=== PATIENT | female | born 1965 | race Caucasian/White ===

== ENCOUNTER 2018-04-24 06:00 | Outpatient (CLI) | payer OTHER ==
[~2018-04-24] VITALS: Ht 160 cm; Wt 68.0 kg
== END 2018-04-24 06:05 | disposition home or self-care (01) ==
LOC: LAB 06:00 → SURH 05-02 07:00 → EDSTATUS 05-02 07:30 → SURH 05-02 07:30
DX: N93.8 Other specified abnormal uterine and vaginal bleeding (principal); D25.9 Leiomyoma of uterus, unspecified

== ENCOUNTER 2019-05-09 11:00 | Inpatient (IN) | payer OTHER ==
[~2019-05-09] VITALS: Ht 160 cm; Wt 71.2 kg
[2019-05-16] MEDS ORDERED: CODE1TAB37 PO (07:39)
[2019-05-16] MEDS ORDERED: NAPROXEN500 MG PO (07:40)
[2019-05-16] MEDS ORDERED: TOBRAMYCIN-DEXAM5 ML OP (07:40)
== END 2019-05-16 12:49 | disposition home or self-care (01) | DRG 743 ==
LOC: OB/GYN 05-15 06:49 → O/R 05-15 06:49 → SURH 05-15 11:00 → OB/GYN 05-15 13:58
PROVIDERS: ADMIT Obstetrics & Gynecology
PROC: 0UQF4ZZ Repair Cul-de-sac, Percutaneous Endoscopic Approach (ICD-10-PCS; 2019-05-15)
PROC: 0USG4ZZ Reposition Vagina, Percutaneous Endoscopic Approach (ICD-10-PCS; 2019-05-15)
PROC: 0UT9FZZ Resection of Uterus, Via Natural or Artificial Opening With Percutaneous Endoscopic Assistance (ICD-10-PCS; principal; 2019-05-15 10:30)
DX: D25.1 Intramural leiomyoma of uterus (principal); N81.5 Vaginal enterocele

== ENCOUNTER 2019-06-12 18:33 | Emergency (ER) | payer OTHER ==
[~2019-06-12] VITALS: Ht 160 cm; Wt 68.5 kg
[~2019-06-12 18:33] MED LIST: CODE1TAB37 PO; NAPROXEN500 MG PO; TOBRAMYCIN-DEXAM5 ML OP
[2019-06-12] MEDS ORDERED: BACTRIM DS TAB1 EACH PO (21:15)
== END 2019-06-12 21:31 | disposition home or self-care (01) ==
LOC: ER 18:33
DX: N39.0 Urinary tract infection, site not specified (principal); R10.2 Pelvic and perineal pain; Z90.710 Acquired absence of both cervix and uterus

== ENCOUNTER 2022-03-10 09:07 | Emergency (ER) | payer OTHER ==
[~2022-03-10] VITALS: Ht 160 cm; Wt 64.9 kg
[~2022-03-10 09:07] MED LIST changes: +BACTRIM DS TAB1 EACH PO
[2022-03-10] MEDS ORDERED: ALTACE1.25 MG PO (09:15)
== END 2022-03-10 13:22 | disposition home or self-care (01) ==
LOC: ER 09:07
DX: J10.1 Influenza due to other identified influenza virus with other respiratory manifestations (principal)